=== PATIENT | female | born 1990 | race Caucasian/White ===

== ENCOUNTER 2017-07-27 14:22 | Observation (INO) | payer BC, OTHER ==
[~2017-07-27] VITALS: Ht 167.6 cm; Wt 133.8 kg
[2017-07-27 15:41] LABS: Basophils # (auto) 0 uL; Basophils % (auto) 0.4 % (0.0-2.0); Eosinophils # (auto) 0.1 uL; Eosinophils % (auto) 0.6 % (0.0-7.0); Hematocrit 43.8 % (36.0-46.0); Lymphocytes # (auto) 2.1 uL; Lymphocytes % (auto) 17.7 % (10.0-50.0); Mean Corpuscular Hemoglobin 30.9 pg (28.0-32.0); Mean Corpuscular Hgb Conc. 34.1 g/dL (32.0-36.0); Mean Corpuscular Volume 90.7 fL (80.0-100.0); Monocytes # (auto) 0.9 uL; Monocytes % (auto) 7.2 % (0.0-12.0); Neutrophils # (auto) 8.8 uL; Neutrophils % (auto) 74.1 % (37.0-80.0); Nucleated Red Blood Cells % 0.2 %; Platelet Count (auto) 351 10^3/uL (140-450); Red Blood Cells 4.83 10^6/uL (4.0-5.20); Red Cell Distribution Width 12.7 % (11.8-14.3); White Blood Cell 11.9 10^3/uL (4.4-10.8)
[2017-07-27 16:02] LABS: BUN/Creatinine Ratio 10.4; Bilirubin, Total 0.5 mg/dL (0.2-1.0); Potassium 4.2 mmol/L (3.5-5.1); Total Protein 8.5 g/dL (6.4-8.2)
[2017-07-27 16:15] LABS: Urine Amorphous Crystal FEW /hpf (None Seen); Urine Bacteria FEW /hpf (None Seen); Urine Blood 1+ /uL (Negative); Urine Mucus FEW (None Seen); Urine Specific Gravity 1.023 (1.001-1.035); Urine WBC 189 /hpf (0 - 5)
[2017-07-27] MEDS ORDERED: SODIUM CHLORIDE 0.9% 1,000 ML IVB ONE (17:47)
[2017-07-27] MEDS ORDERED: MORPHINE SULFATE 4 MG/ML SYR/VIAL IV ONE ×4 (18:00→22:30)
[2017-07-27] MEDS ORDERED: ONDANSETRON HCL 4 MG/2 ML VIAL IV ONE (18:00)
[2017-07-27] MEDS ORDERED: GASTROGRAFIN 120 ML SOL ONE (18:31)
[2017-07-27 19:01] LABS: INR 0.98 (0.9-1.15); Partial Thromboplastin Time 30.1 sec (22.64-33.71); Prothrombin Time 10.7 sec (9.37-12.3)
[2017-07-27] MEDS ORDERED: IOHEXOL 300 MG/ML 100ML BOTTLE IJ ONE (19:50)
[2017-07-27] MEDS ORDERED: HEPARIN DRIP/D5W 100UNITS/ML 250 ML IV SCH (21:01)
[2017-07-27] MEDS ORDERED: HEPARIN SODIUM (PORCINE) 5000 UNITS/ML 1ML VIAL IV ONE (21:15)
[2017-07-27] MEDS ORDERED: cefTRIAXone 1GM/10ml IVPUSH 10 ML IV ONE (21:15)
[2017-07-27] MEDS ORDERED: HEPARIN SODIUM (PORCINE) 5000 UNITS/ML 1ML VIAL ONE (21:27)
[2017-07-27] MEDS ORDERED: SODIUM CHLORIDE 0.9% 1,000 ML IV ONE (21:45)
[2017-07-27] MEDS ORDERED: SODIUM CHLORIDE 0.9% 1,000 ML IV SCH (22:45)
[2017-07-27] MEDS ORDERED: ENOXAPARIN SOD 150 MG/1 ML SYRINGE SC ONE (23:30)
[2017-07-28 00:09] VITALS: BP 128/78
[2017-07-28] MEDS ORDERED: ONDANSETRON HCL 4 MG/2 ML VIAL IV ONE (00:15)
[2017-07-28] MEDS ORDERED: HYDROmorphone HCL 2 MG/ML VL IV ONE (00:15)
== END 2017-07-28 00:39 | disposition short-term general hospital (02) | DRG 443 ==
LOC: ER 14:22 → OVERFLOW 17:48 → ER 07-28 00:39
PROVIDERS: ADMIT Family Medicine; ATTEND Family Medicine
DX: I81 Portal vein thrombosis (principal); D73.5 Infarction of spleen; Z98.84 Bariatric surgery status; Z82.49 Family history of ischemic heart disease and other diseases of the circulatory system
CPT/HCPCS: 36415; 71046; 74177; 80053; 81001; 81025; 82150; 83615; 83690; 83735; 85025; 85610; 85730; 96361; 96365; 96366; 96372; 96375; 96376; 99285; G0378; J1170; J1644; J1650; J2270; J2405; J7030; Q9963; Q9967